=== PATIENT | male | born 1995 | race Caucasian/White ===

== ENCOUNTER 2020-11-06 00:11 | Emergency (ER) | payer BC ==
[2020-11-06] MEDS ORDERED: SODIUM CHLORIDE 0.9% 1,000 ML IV STA (00:42)
[2020-11-06] MEDS ORDERED: KETOROLAC 15 MG/ML 1 ML VIAL IVP STA (00:43)
[2020-11-06] MEDS ORDERED: ONDANSETRON 4 MG/2 ML VIAL IVP STA (00:43)
--- NOTE | 2020-11-06 01:20 | XR ---
EXAM: XR Abdomen, 1 View CLINICAL HISTORY: ITS.REASON XR Reason: abdominal pain TECHNIQUE: Frontal supine view of the abdomen/pelvis. COMPARISON: No relevant prior studies available. FINDINGS: Gastrointestinal tract: Unremarkable. No dilation. Bones/joints: Unremarkable. IMPRESSION: Normal abdominal x-ray.
[2020-11-06 01:24] LABS: Basophils # (A) 0.1 k/uL (0-0.2); Basophils % (A) 1 %; Eosinophils # (A) 0.2 k/uL (0-0.7); Eosinophils % (A) 2 %; HCT 42.4 % (39.0-53.0); HGB 13.8 gm/dL (13.0-17.5); Lymphocytes # (A) 2.1 k/uL (1.0-4.8); Lymphocytes % (A) 20 %; MCH 28.4 pg (25.0-35.0); MCHC 32.5 g/dL (31.0-37.0); MCV 87.4 fL (80.0-100.0); Mean Platelet Volume 6.8; Monocytes # (A) 0.5 k/uL (0-1.0); Monocytes % (A) 5 %; Neutrophils # (A) 7.6 k/uL (1.3-7.7); Neutrophils % (A) 72 %; Platelet Count 393 k/uL (150-450); RBC 4.85 m/uL (4.30-5.90); RDW 14.3 % (11.5-15.5); WBC 10.6 k/uL (3.8-10.6)
[2020-11-06 01:37] LABS: ALT 42 U/L (4-49); AST 45 U/L (17-59); African American GFR (CKD) >90 (>60 ml/min/1.73 sqM); Albumin 4.5 g/dL (3.5-5.0); Alkaline Phosphatase 95 U/L (38-126); Amylase 39 U/L (30-110); Anion Gap 7 mmol/L; Blood Urea Nitrogen 15 mg/dL (9-20); Calcium 9.9 mg/dL (8.4-10.2); Carbon Dioxide 27 mmol/L (22-30); Chloride 105 mmol/L (98-107); Glucose 90 mg/dL (74-99); Lipase 54 U/L (23-300); Non-African American GFR(CKD) >90 (>60 ml/min/1.73 sqM); Sodium 139 mmol/L (137-145); Total Bilirubin 0.4 mg/dL (0.2-1.3); Total Protein 7.7 g/dL (6.3-8.2)
[2020-11-06 01:40] LABS: INR 0.9 (<1.2); Partial Thromboplastin Time 27.1 sec (22.0-30.0); Prothrombin Time 9.7 sec (9.0-12.0)
[2020-11-06 01:41] LABS: Appearance,Urine Clear (Clear); Bilirubin,Urine Negative (Negative); Blood,Urine Negative (Negative); Color,Urine Yellow; Glucose,Urine (UA) Negative (Negative); Ketones,Urine Trace (Negative); Leukocyte Esterase,Urine Negative (Negative); Nitrite,Urine Negative (Negative); PH, Urine 6.5 (5.0-8.0); Protein,Urine Negative (Negative); Specific Gravity,Urine 1.023 (1.001-1.035); Urobilinogen,Urine <2.0 mg/dL (<2.0)
--- NOTE | 2020-11-06 01:45 | ED ---
Abdominal Pain HPI - General Chief Complaint: Abdominal Pain Stated Complaint: Abd Pain Time Seen by Provider: 11/06/20 00:21 Source: patient Mode of arrival: ambulatory Limitations: no limitations - History of Present Illness Initial Comments: Patient is a 25-year-old male presenting to emergency Department with complaints of right upper quadrant abdominal pain X 1 week. Patient has had some intermittent nausea with this as well. He states the pain started about 1 week ago, seemed to be pretty steady for a few days and then seemed to improve. Tucker kirkpatrick states last 2 days the pain has intensified again. He notes some mild radiation into his back area. He denies any previous abdominal surgeries. He denies any fever or chills. He denies drinking alcohol. He denies any chest pain or shortness of breath. He denies any vomiting. He has had some intermittent bouts of diarrhea, nothing that has been continuous. He does have a history of diverticulitis but states that pain is usually in the lower left quadrant, that area has been pain-free. He has no further complaints at this time. Upon arrival to the ER his vitals are stable. - Related Data Allergies Allergy/AdvReac Type Severity Reaction Status Date / Time No Known Allergies Allergy Verified 11/06/20 00:16 Review of Systems ROS Statement: Those systems with pertinent positive or pertinent negative responses have been documented in the HPI. ROS Other: All systems not noted in ROS Statement are negative. Past Medical History Additional Past Medical History / Comment(s): diverticulitis History of Any Multi-Drug Resistant Organisms: None Reported Past Surgical History: No Surgical Hx Reported Past Psychological History: No Psychological Hx Reported Smoking Status: Vaper Past Alcohol Use History: None Reported Past Drug Use History: None Reported General Exam - General Exam Comments Initial Comments: GENERAL: Patient is well-developed and well-nourished. Patient is nontoxic and in no acute distress. HEAD: Atraumatic, normocephalic. EYES: Pupils equal round and reactive to light, extraocular movements intact, sclera anicteric, conjunctiva are normal. Eyelids were unremarkable. ENT: TMs normal, nares patent, oropharynx clear without exudates. Moist mucous membranes. NECK: Normal range of motion, supple without lymphadenopathy or JVD. LUNGS: Unlabored respirations. Breath sounds clear to auscultation bilaterally and equal. No wheezes rales or rhonchi. HEART: Regular rate and rhythm without murmurs, rubs or gallops. ABDOMEN: Tenderness with palpation of the right upper quadrant, epigastric area. Soft, normoactive bowel sounds. No guarding, no rebound. No masses appreciated. : Deferred MUSCULOSKELETAL: Normal extremities with adequate strength and normal range of motion, no pitting or edema. No clubbing or cyanosis. NEUROLOGICAL: Patient is alert and oriented x 3. Motor and sensory are also intact. Cranial nerves II through XII grossly intact. Symmetrical smile. Normal speech, normal gait. PSYCH: Normal mood, normal affect. SKIN: Warm, Dry, normal turgor, no rashes or lesions noted. Limitations: no limitations Course Vital Signs 11/06/20 11/06/20 00:14 01:10 Temperature 98.7 F Pulse Rate 110 H 91 Respiratory 20 20 Rate Blood Pressure 165/99 124/80 O2 Sat by Pulse 99 97 Oximetry Medical Decision Making - Medical Decision Making Patient is a 25-year-old male presenting with right upper quadrant epigastric pain 1 week. His vital signs are stable. Does have history of diverticulitis, no abdominal surgeries. No pain in the left lower quadrant. Labs are unremarkable, no acute process, lipase is normal, lactic acid is normal, liver enzymes are normal. Urine shows no evidence of infection. I did get an ultrasound of the right upper quadrant, no acute process was found. Patient was given some fluids, Zofran and Toradol and has been resting comfortably the ER. I discussed these findings with him. His symptoms are most likely related to biliary colic. I did recommend following up with his PCP and/or surgeon for further evaluation. Patient is in agreement this plan of care. Return parameters were discussed with the patient and he verbalized understanding. - Lab Data Result diagrams: 11/06/20 01:11 11/06/20 01:11 Lab Results 11/06/20 11/06/20 11/06/20 Range/Units 01:11 01:11 01:11 WBC 10.6 (3.8-10.6) k/uL RBC 4.85 (4.30-5.90) m/uL Hgb 13.8 (13.0-17.5) gm/dL Hct 42.4 (39.0-53.0) % MCV 87.4 (80.0-100.0) fL MCH 28.4 (25.0-35.0) pg MCHC 32.5 (31.0-37.0) g/dL RDW 14.3 (11.5-15.5) % Plt Count 393 (150-450) k/uL MPV 6.8 Neutrophils % 72 % Lymphocytes % 20 % Monocytes % 5 % Eosinophils % 2 % Basophils % 1 % Neutrophils # 7.6 (1.3-7.7) k/uL Lymphocytes # 2.1 (1.0-4.8) k/uL Monocytes # 0.5 (0-1.0) k/uL Eosinophils # 0.2 (0-0.7) k/uL Basophils # 0.1 (0-0.2) k/uL PT 9.7 (9.0-12.0) sec INR 0.9 (<1.2) APTT 27.1 (22.0-30.0) sec Sodium 139 (137-145) mmol/L Potassium 5.0 (3.5-5.1) mmol/L Chloride 105 (98-107) mmol/L Carbon Dioxide 27 (22-30) mmol/L Anion Gap 7 mmol/L BUN 15 (9-20) mg/dL Creatinine 1.06 (0.66-1.25) mg/dL Est GFR (CKD-EPI)AfAm >90 (>60 ml/min/1.73 sqM) Est GFR (CKD-EPI)NonAf >90 (>60 ml/min/1.73 sqM) Glucose 90 (74-99) mg/dL Plasma Lactic Acid [place] (0.7-2.0) mmol/L Calcium 9.9 (8.4-10.2) mg/dL Total Bilirubin 0.4 (0.2-1.3) mg/dL AST 45 (17-59) U/L ALT 42 (4-49) U/L Alkaline Phosphatase 95 (38-126) U/L Total Protein 7.7 (6.3-8.2) g/dL Albumin 4.5 (3.5-5.0) g/dL Amylase 39 (30-110) U/L Lipase 54 (23-300) U/L Urine Color Urine Appearance (Clear) Urine pH (5.0-8.0) Ur Specific [place] (1.001-1.035) Urine Protein (Negative) Urine Glucose (UA) (Negative) Urine Ketones (Negative) Urine Blood (Negative) Urine Nitrite (Negative) Urine Bilirubin (Negative) Urine Urobilinogen (<2.0) mg/dL Ur Leukocyte Esterase (Negative) 11/06/20 11/06/20 Range/Units 01:11 01:15 WBC (3.8-10.6) k/uL RBC (4.30-5.90) m/uL Hgb (13.0-17.5) gm/dL Hct (39.0-53.0) % MCV (80.0-100.0) fL MCH (25.0-35.0) pg MCHC (31.0-37.0) g/dL RDW (11.5-15.5) % Plt Count (150-450) k/uL MPV Neutrophils % % Lymphocytes % % Monocytes % % Eosinophils % % Basophils % % Neutrophils # (1.3-7.7) k/uL Lymphocytes # (1.0-4.8) k/uL Monocytes # (0-1.0) k/uL Eosinophils # (0-0.7) k/uL Basophils # (0-0.2) k/uL PT (9.0-12.0) sec INR (<1.2) APTT (22.0-30.0) sec Sodium (137-145) mmol/L Potassium (3.5-5.1) mmol/L Chloride (98-107) mmol/L Carbon Dioxide (22-30) mmol/L Anion Gap mmol/L BUN (9-20) mg/dL Creatinine (0.66-1.25) mg/dL Est GFR (CKD-EPI)AfAm (>60 ml/min/1.73 sqM) Est GFR (CKD-EPI)NonAf (>60 ml/min/1.73 sqM) Glucose (74-99) mg/dL Plasma Lactic Acid [place] 1.6 (0.7-2.0) mmol/L Calcium (8.4-10.2) mg/dL Total Bilirubin (0.2-1.3) mg/dL AST (17-59) U/L ALT (4-49) U/L Alkaline Phosphatase (38-126) U/L Total Protein (6.3-8.2) g/dL Albumin (3.5-5.0) g/dL Amylase (30-110) U/L Lipase (23-300) U/L Urine Color Yellow Urine Appearance Clear (Clear) Urine pH 6.5 (5.0-8.0) Ur Specific [place] 1.023 (1.001-1.035) Urine Protein Negative (Negative) Urine Glucose (UA) Negative (Negative) Urine Ketones Trace H (Negative) Urine Blood Negative (Negative) Urine Nitrite Negative (Negative) Urine Bilirubin Negative (Negative) Urine Urobilinogen <2.0 (<2.0) mg/dL Ur Leukocyte Esterase Negative (Negative) Disposition Clinical Impression: RUQ abdominal pain, Biliary colic Disposition: HOME SELF-CARE Condition: Stable Instructions (If sedation given, give patient instructions): Biliary Colic (ED) Additional Instructions: Please return to the Emergency Department if symptoms worsen or any other concerns. Labs, urine, and US of the right upper quadrant are all normal today. Limit high-fat, spicy foods. Follow up with your PCP and/or surgeon as discussed. Is patient prescribed a controlled substance at d/c from ED?: No Referrals: Annette Chacon MD [Primary Care Provider] - 1-2 days Camilo Dwyer MD [STAFF PHYSICIAN] - 1-2 days
--- NOTE | 2020-11-06 01:53 | US ---
EXAM: US Abdomen Limited, Gallbladder CLINICAL HISTORY: ITS.REASON US Reason: RUQ pain x 1 week TECHNIQUE: Real-time ultrasound of the right upper quadrant with image documentation. COMPARISON: No relevant prior studies available. FINDINGS: Liver: Liver measures 16.3 cm. No focal hepatic lesion. No intrahepatic bile duct dilatation. Portal vein is patent and normally directed. Gallbladder: No evidence of cholelithiasis, gallbladder wall thickening, or pericholecystic fluid. Sonographic [place] sign reported as negative. Common bile duct: No biliary dilatation. Common bile duct measures 3 mm. Pancreas: Visualized portions of the pancreas are normal. Right kidney: Right kidney measures 13.7 cm. No hydronephrosis. Inferior vena cava: Visualized portion of the IVC is normal. Free fluid: No ascites. IMPRESSION: No acute process.
[2020-11-06 02:36] VITALS: BP 133/81; PULSE 94; RESP 18; TEMP 98.3
== END 2020-11-06 02:26 | disposition home or self-care (01) ==
LOC: EC 00:11
DX: K80.50 Calculus of bile duct without cholangitis or cholecystitis without obstruction (principal); F17.290 Nicotine dependence, other tobacco product, uncomplicated
CPT/HCPCS: 36415; 80053; 82150; 83605; 83690; 85025; 85610; 85730; 81003; 74018; 76705; 99284; 96374; 96375; 96361; J2405; J1885

== ENCOUNTER → 2020-11-15 | Outpatient (CLI) | payer BC ==
--- NOTE | 2020-11-15 09:18 | US ---
EXAMINATION TYPE: US axilla LT DATE OF EXAM: 11/15/2020 COMPARISON: NONE CLINICAL HISTORY: R22.32 MASS OF LEFT AXILLA. Patient stated has noted palpable after showering; weig ht loss over 100lb in past year per patient's efforts. US findings of left axilla: lymph node is imaged at palpable = 5.0 x 3.3 x 1.3cm with cortex measured at 0.1cm. IMPRESSION: 1. Large left axillary lymph node. 2. Consider additional workup with CT chest. Consider lymphoma.
== END | disposition home or self-care (01) ==
LOC: RADUSWWP 08:31
PROVIDERS: ATTEND Family Medicine
DX: R59.0 Localized enlarged lymph nodes (principal)

== ENCOUNTER → 2020-11-26 | Outpatient (CLI) | payer BC ==
--- NOTE | 2020-11-26 09:07 | CT ---
EXAMINATION TYPE: CT chest w con DATE OF EXAM: 11/26/2020 COMPARISON: Ultrasound left axilla 11 days ago HISTORY: Swelling under Lt axilla CT DLP: 782.4 mGycm. Automated Exposure Control for Dose Reduction was Utilized. TECHNIQUE: CT scan of the thorax is performed following with IV Contrast, patient injected with 100 mL of Isovue 300. FINDINGS: Examination is suboptimal secondary to patient's large body habitus. LUNGS: There is respiratory motion artifact degradation as patient unable to hold breath. Lungs gross ly clear without suspicious consolidation. No concerning masses. No pleural effusion or pneumothorax identified. MEDIASTINUM: There are no greater than 1 cm hilar or mediastinal lymph nodes. No cardiomegaly or pe ricardial effusion is seen. OTHER: Small degree of flame-shaped subareolar gynecomastia is present bilaterally. Bilateral axilla show subcentimeter benign-appearing nodes. No concerning axillary mass or adenopathy noted bilaterall y. Retention of central fatty hilum is present. IMPRESSION: Unremarkable study.
== END | disposition home or self-care (01) ==
LOC: RADCTMAIN 07:53
PROVIDERS: ATTEND Family Medicine
DX: R22.32 Localized swelling, mass and lump, left upper limb (principal)
CPT/HCPCS: 71260; Q9967

== ENCOUNTER → 2021-02-04 | Outpatient (CLI) | payer BC | END | disposition home or self-care (01) | LOC: LABWHC1 11:07 | PROVIDERS: ATTEND Nurse Practitioner Family | DX: U07.1 COVID-19 (principal) | CPT/HCPCS: U0003; C9803; U0005 ==

== ENCOUNTER → 2021-03-13 | Outpatient (CLI) | payer BC ==
--- NOTE | 2021-03-17 12:53 | HM ---
HOLTER MONITOR REPORT DCG: DATE OF SERVICE: 03/13/2021 The patient was monitored for 24 hours. The baseline rhythm appeared to be sinus with a minimum heart rate of 40, max 133 and average of 100 beats per minute. Ventricular ectopic events seen in less than 1% of the total beats count. Supraventricular ectopic events seen in less than 1% of the total beats count. No evidence of any significant sinus pause or sinus arrest seen. The patient reported no symptoms. CONCLUSION: 1. Sinus rhythm as a baseline mechanism. 2. Rare ventricular ectopic events. 3. Rare supraventricular ectopic events. 4. No evidence of any significant sinus pause or sinus arrest. 5. The patient reports no symptoms. 6. The patient did have multiple episodes of bradycardia, most of them are in the early childhood education coordinator. MMODL / IJN: [id number] /
--- NOTE | 2021-03-19 18:12 | HM ---
HOLTER MONITOR REPORT REFERRING PHYSICIAN: Dr. Chacon. INDICATION: . The patient was monitored for 24 hours. The baseline rhythm appeared to be sinus mechanism. Minimum heart rate was 40, max 33 and average heart rate of 100 beats per minute. Ventricular ectopic events seen in less than 1% of the total beats count as well as supraventricular ectopic events. The patient did have sinus bradycardia and that was at 6:34 am in the morning. The patient did have multiple episodes of sinus arrhythmia as well. No significant sinus pause or sinus arrest. The patient reported no symptoms. CONCLUSION: 1. Sinus rhythm as a baseline mechanism. 2. Sinus arrhythmia was quite prominent. 3. Multiple episodes of sinus bradycardia noted mostly in the audio video mechanic with heart rate in the 40s. 4. No evidence of significant sinus pause or sinus arrest. MMODL / IJN: [id number] /
== END | disposition home or self-care (01) ==
LOC: RADECHMAIN 09:50
PROVIDERS: ATTEND Family Medicine
DX: R00.2 Palpitations (principal)
CPT/HCPCS: 93225; 93226